=== PATIENT | female | born 1970 | race Caucasian/White ===

== ENCOUNTER → 2017-03-13 | Outpatient (CLI) | payer MEDICARE, BC ==
[~2017-03-13] MED LIST: ALPRAZOLAM0.5 MG PO; AMBIEN 5MG TAB5 MG PO; AMLODIPINE/BENA1 CAP PO; BACITRAYCIN PLU28 GM TP; CYCLOBENZ5 MG PO; DICLOFENAC SODI75 M2 PO; EFFEXOR-XR150 MG PO; ETODOLAC400 MG PO; IBUPROFEN400 MG; LORTAB 5/3251 TAB PO; MEDROL 4MG. DOSE4 MG PO; PREDNISONE 20MG20 MG PO; PRILOSEC OTC20 MG PO; PROMETHAZINE HC25 M1 PO; QUALITY CHOICE PO; TECFIDERA240 MG PO; TEKTURNA150 MG PO; ULTRAM50 MG PO; VITAMIN D31000 IU PO; VOLTAREN75 MG PO; [UNRECOGNIZED DRUG - OTHER] PO; [UNRECOGNIZED DRUG - OTHER] PO; [UNRECOGNIZED DRUG - REMARK] PO
[2017-03-13 11:31] LABS: HEMOGLOBIN 13.8 g/dL (12.2-16.2); LYMPH # 1.2 K/mm3 (0.7-4.5); LYMPH % 27.8 % (10-50.0)
[2017-03-13 12:19] LABS: BILIRUBIN, INDIRECT 0.19 mg/dL (0-0.9)
== END ==
LOC: LAB 11:05
PROVIDERS: Physician Assistant Medical
DX: G35 Multiple sclerosis (principal); R53.83 Other fatigue

== ENCOUNTER → 2017-10-23 | Outpatient (CLI) | payer MEDICARE, BC ==
--- NOTE | 2017-10-27 08:36 | RADIOLOGY REPORT PS360 ---
DIG MAMM-SCREEN [place] W/CAD Ordering Physician: RIZWANA PASCUAL Patient Age: 47 years Female COMPARISON: September 2015, 2015, 2012 INDICATION: 47-year-old no hormones no new complaints. Previous benign excisional biopsy Family history. Maternal grandmother TECHNIQUE: MLO and cc view both breast along with CAD FINDINGS: Minimal fibroglandular elements throughout both breasts lower density breast. No significant change in prior study Right breast. No significant new findings Areas of minimal density lateral retroareolar region remains stable since 2012 studies Left breast. No significant new findings.. Follow up one year recommended. IMPRESSION: Stable bilateral mammogram with no significant new findings. Follow-up in one year recommended. BI-RADS CATEGORY: RECOMMENDED FOLLOWUP: (A letter has been sent to the patient regarding results of the study.) .
== END ==
LOC: RAD 15:52
DX: Z12.31 Encounter for screening mammogram for malignant neoplasm of breast (principal)
CPT/HCPCS: G0202